=== PATIENT | male | born 1980 | race Caucasian/White ===

== ENCOUNTER 2018-04-26 14:10 | Observation (INO) | payer BC, SELFPAY ==
[2018-04-26 13:35] VITALS: BMI 23.4
[2018-04-26 13:38] VITALS: BP 137/96; PULSE 96; RESP 16; TEMP 36.8; O2SAT 97
[2018-04-26 14:00] VITALS: BP 137/96; PULSE 96; RESP 16; TEMP 36.8
--- NOTE | 2018-04-26 14:13 | PCM.HP.STD ---
Problem List (1) Acute, mixed level of activity, alcohol withdrawal delirium Status: Acute History of Present Illness Date of Admission: 04/26/18 Chief Complaint: alcohol withdrawal The patient is a 38 year old M who has been drinking heavily for 20 some years presents seeking treatment for acute alcohol withdrawal. Patient's last drink was a few sips on his way to the hospital. Patient drinks 10-14 beers per day. Patient had been sober for 6 weeks, but over the past 2 weeks, has been drinking heavily again. Patient was admitted to [facility] and was on phenobarbital before. [] Past Medical History Allergies No Known Allergies Allergy (Verified 04/26/18 13:44) Home Medications: Ambulatory Orders Medication Instructions Recorded NK [NK] 04/26/18 Lives: With Family Smoking Status: Never smoker Tobacco Use: Chew Alcohol: Heavy Drugs: None - *Family History Maternal History Items: - - Mother present and denies any medical history. Paternal History Items: - - No known medical problems Review of Systems Constitutional: Denies: Anorexia, Chills, Fever Eyes: Denies: Blurred vision, Double vision HEENT: Denies: Head Aches, Sinus Congestion, Sinus Drainage Cardiovascular: Denies: Chest Pain, Palpitations Respiratory: Denies: Cough, Shortness of breath at rest, Sputum production Gastrointestinal: Denies: Abdominal Pain, Nausea, Vomiting Genitourinary: Denies: Dysuria Musculoskeletal: Reports: - - Aches in the lower extremities particularly his calves. Skin: Denies: Rash, Wounds Neurological: Denies: Blurred vision, Double vision, Focal weakness, Numbness, Tingling Psychiatric: Reports: Anxiety. Denies: Depression Hematologic/ Lymphatic: Denies: Easy Bruising, Easy Bleeding, Hx of blood clot VTE Information - Inpt Only VTE Present on Admission: No VTE Mechan Device Prophylaxis: None VTE Pharm Prophylaxis ordered?: No Patient Problems: Active and Suspected Problems Acute, mixed level of activity, alcohol withdrawal delirium (Acute) - Physical Exam General: Alert, Cooperative, - - Comfortable. Writhing in bed. HEENT: Atraumatic, Normocephalic Neck: No Nodes, Thyroid Normal Size and Texture Lungs: Clear to auscultation, Normal air movement, No rhonchi, No wheeze Cardiovascular: Regular rate, Regular Rhythm, Normal S1, Normal S2, No murmurs Abdomen: Bowel Sounds Present, Soft, Non Tender, Non-Distended, No Hepato-splenomegaly Extremities: No edema, No Calf Tenderness Skin: No rashes Psych/Mental Status: Anxious Vital Signs Temp Pulse Resp BP Pulse Ox 36.8 C 96 16 137/96 H 97 04/26/18 13:38 04/26/18 13:38 04/26/18 13:38 04/26/18 13:38 04/26/18 13:38 Oxygen Delivery Method Room Air Weight: 78.4 kg Body Mass Index (BMI) 23.4 Assessment/Plan All Active Problems Acute, mixed level of activity, alcohol withdrawal delirium (Acute) 1. Acute alcohol withdrawal CIWA score of 15 Patient be initiated on Librium taper Additionally, patient will have other medications for other somatic complaints [facility] to facilitate outpatient treatment facility upon discharge. Patient was 6 weeks sober only to regress and start drinking again. Patient reports that he was at [facility] for alcohol withdrawal treatment. Code Visit Inpatient E&M: 99203 Init Hosp L2
--- NOTE | 2018-04-26 14:19 | HP.PCM_ITS ---
Problem List (1) Acute, mixed level of activity, alcohol withdrawal delirium Status: Acute History of Present Illness Date of Admission: 04/26/18 Chief Complaint: alcohol withdrawal The patient is a 38 year old M who has been drinking heavily for 20 some years presents seeking treatment for acute alcohol withdrawal. Patient's last drink was a few sips on his way to the hospital. Patient drinks 10-14 beers per day. Patient had been sober for 6 weeks, but over the past 2 weeks, has been drinking heavily again. Patient was admitted to [facility] and was on phenobarbital before. [] Past Medical History Allergies No Known Allergies Allergy (Verified 04/26/18 13:44) Home Medications: Ambulatory Orders Medication Instructions Recorded NK [NK] 04/26/18 Lives: With Family Smoking Status: Never smoker Tobacco Use: Chew Alcohol: Heavy Drugs: None - *Family History Maternal History Items: - - Mother present and denies any medical history. Paternal History Items: - - No known medical problems Review of Systems Constitutional: Denies: Anorexia, Chills, Fever Eyes: Denies: Blurred vision, Double vision HEENT: Denies: Head Aches, Sinus Congestion, Sinus Drainage Cardiovascular: Denies: Chest Pain, Palpitations Respiratory: Denies: Cough, Shortness of breath at rest, Sputum production Gastrointestinal: Denies: Abdominal Pain, Nausea, Vomiting Genitourinary: Denies: Dysuria Musculoskeletal: Reports: - - Aches in the lower extremities particularly his calves. Skin: Denies: Rash, Wounds Neurological: Denies: Blurred vision, Double vision, Focal weakness, Numbness, Tingling Psychiatric: Reports: Anxiety. Denies: Depression Hematologic/ Lymphatic: Denies: Easy Bruising, Easy Bleeding, Hx of blood clot VTE Information - Inpt Only VTE Present on Admission: No VTE Mechan Device Prophylaxis: None VTE Pharm Prophylaxis ordered?: No Patient Problems: Active and Suspected Problems Acute, mixed level of activity, alcohol withdrawal delirium (Acute) - Physical Exam General: Alert, Cooperative, - - Comfortable. Writhing in bed. HEENT: Atraumatic, Normocephalic Neck: No Nodes, Thyroid Normal Size and Texture Lungs: Clear to auscultation, Normal air movement, No rhonchi, No wheeze Cardiovascular: Regular rate, Regular Rhythm, Normal S1, Normal S2, No murmurs Abdomen: Bowel Sounds Present, Soft, Non Tender, Non-Distended, No Hepato- splenomegaly Extremities: No edema, No Calf Tenderness Skin: No rashes Psych/Mental Status: Anxious Vital Signs Temp Pulse Resp BP Pulse Ox 36.8 C 96 16 137/96 H 97 04/26/18 13:38 04/26/18 13:38 04/26/18 13:38 04/26/18 13:38 04/26/18 13:38 Oxygen Delivery Method Room Air Weight: 78.4 kg Body Mass Index (BMI) 23.4 Assessment/Plan All Active Problems Acute, mixed level of activity, alcohol withdrawal delirium (Acute) 1. Acute alcohol withdrawal * CIWA score of 15 * Patient be initiated on Librium taper * Additionally, patient will have other medications for other somatic complaints * [facility] to facilitate outpatient treatment facility upon discharge. * Patient was 6 weeks sober only to regress and start drinking again. Patient reports that he was at [facility] for alcohol withdrawal treatment. Code Visit Inpatient E&M: 94530 Init Hosp L2
[2018-04-26] MEDS: chlordiazePOXIDE 25 MG Capsule 50 MG PO (14:36)
[2018-04-26] MEDS: Pramipexole Di-HCl 0.25 MG Tablet PO (14:36)
[2018-04-26 14:42] LABS: Absolute Lymphocyte Count 2.14 X10^3/ul (0.83-4.51); Basophil# 0.03 X10^3/uL; Basophil% 0.5 % (0-1); Eosinophil# 0.12 X10^3/uL; Eosinophils% 2.1 % (0-5); Hematocrit 46.2 % (40-54); Hemoglobin 16.4 g/dl (13.0-16.5); Lymphocyte # 2.14 X10^3/ul (4.0); Lymphocyte % 37.5 % (19-41); Mean Corp Hgb Conc 35.5 g/gl (32-36); Mean Corpuscular Hgb 31.7 pg (27.0-32.0); Mean Corpuscular Volume 89.2 fL (80-94); Mean Platelet Vol. 9.1 fl (6.2-12.0); Monocyte# 0.39 X10^3/uL; Monocyte% 6.8 % (0-10); Neutrophil # 3.01 X10^3/uL (2.7-7.7); Neutrophil % 52.7 % (47-70); Platelet Count 247 K/mm3 (150-450); RBC Distribution Width CV 12.9 % (11.6-14.6); RBC Distribution Width SD 42.4 fl (35.1-43.9); Red Blood Count 5.18 M/mm3 (4.6-6.2); White Blood Count 5.7 K/mm3 (4.4-11.0)
[2018-04-26 14:43] LABS: POSITIVE COUNT NO; POSITIVE DIFFERENTIAL NO; POSITIVE MORPHOLOGY NO
[2018-04-26] MEDS: Lactated Ringers 1,000 ML 125 ML IV (14:55)
[2018-04-26 14:57] VITALS: BMI 23.4
[2018-04-26 14:58] LABS: AST(SGOT) 25 U/L (15-37); Alanine Aminotransfer ALT/SGPT 35 U/L (16-61); Albumin, Serum 4.1 g/dL (3.2-5.0); Alkaline Phosphatase 103 U/L (45-117); Anion Gap 13 (5-15); BUN 6 mg/dL (7-18); BUN/Creat Ratio 7.7 RATIO (10-20); Calcium,Total 8.7 mg/dL (8.5-10.1); Chloride 103 mmol/L (98-107); Creatinine, Serum 0.78 mg/dL (0.70-1.30); EST Glomerular Filtration Rate 118 mL/min (>60); Est Glom Filt Rate - Afr Amer 143 mL/min (>60); Estimated Creatinine Clearance 140.94 ml/min; Globulin 4.1 g/dL (2.2-4.2); Glucose 83 mg/dL (74-106); Potassium 3.8 mmol/L (3.5-5.1); Protein, Total 8.2 g/dL (6.4-8.2); Sodium Level 143 mmol/L (136-145)
[2018-04-26] MEDS: hydrOXYzine PAM 25 MG Capsule 50 MG PO (16:15)
[2018-04-26] MEDS: Methocarbamol 750 MG Tablet PO (16:16)
--- NOTE | 2018-04-26 16:22 | CHAPLAIN ---
Type of Pastoral Visit _x__ Initial Visit ___ Follow-up Visit ___ On-call Visit ___ General Patient Visit ___ Spiritual Assessment ___ Family Conference ___ Bereavement ___ Rapid Response ___ Code Blue ___ Other (describe below) Pastoral Care Referral From _x__ Patient ___ Family ___ Nurse ___ Physician ___ Legal Office Administrator ___ Dramatic Art Teacher ___ Other (describe below) Sacrament/Intervention _x__ Active listening ___ Anointing ___ Presybeterian ___ Bereavement ___ Communion ___ Yadira exploration ___ ___ Life review ___ Prayer ___ Reconciliation ___ Sacrament of Sick _x__ Supportive presence ___ Wedding ___ Other (describe below) Pastoral Comments introduced self to patient and my role as garage supervisor; pt began with my life is a mess; pt was tearful and expressed disappointment in himself for his return to alcohol; gave presence and assurance to patient that staff/garage supervisor will be available for help; instructed pt on how to order food; offered pt a return visit tomorrow and he agreed
--- NOTE | 2018-04-26 16:49 | NURSING ---
[facility] FROM [facility] UPDATED AND IS UPON NURSING UNIT
--- NOTE | 2018-04-27 07:10 | PCM.DC.SUM ---
Discharge Date and Diagnosis Date of Admission: 04/26/18 Date of Discharge: 04/26/18 Hospital Course and Treatment Operations: None Procedures: None Summary of Care Provided: The patient is a 38 year old M presents voluntarily seeking treatment for alcohol. Patient had a CIWA score of 15. Patient was started on protocol with Librium. Patient left AGAINST MEDICAL ADVICE 2 hours after being admitted to the floor. Patient ate gave no warning but apparently there is some argument with his mother and himself previous to that before he left. [] Home Medications: Medications to take at Discharge NK [NK] 04/26/18 Primary Care Physician: Jannette Ha [Primary Care Provider] - Medical Necessity - Tobacco Use Smoking Status: Never smoker Tobacco Use: Chew Meaningful Use Info Meaningful Use Diagnoses (Choose all that apply): None applicable Code Visit OBSV E&M: 92640 Observation care discharge
== END 2018-04-26 16:40 | disposition left against medical advice (07) ==
PROVIDERS: Family Provider Family Medicine; PCP Family Medicine
DX: F10.231 Alcohol dependence with withdrawal delirium (principal); F17.220 Nicotine dependence, chewing tobacco, uncomplicated
CPT/HCPCS: 80053; 85025; 96360; 96361; 99218; J7120; G0378; G0379